=== PATIENT | female | born 1955 | race Caucasian/White ===

== ENCOUNTER 2024-02-02 10:56 | Inpatient (IN) | payer OTHER ==
[2024-02-02] MEDS ORDERED: Bisacodyl 5 MG TAB PO PRN (14:21)
[2024-02-02] MEDS ORDERED: Ondansetron ODT 4 MG TAB SL PRN (14:21)
[2024-02-02] MEDS ORDERED: oxyCODONE 5 MG TAB PO PRN (14:26)
[2024-02-02] MEDS: FLU (Fluad Triv) TS24-25 (65UP)/MF59C/PF 45 MCG/0.5 ML Syringe IM ONE (15:57)
[2024-02-02] MEDS: Methocarbamol 500 MG TAB PO SCH (15:58)
[2024-02-02] MEDS: oxyCODONE 5 MG TAB PO PRN (17:53)
[2024-02-02] MEDS: CeleCOXIB 100 MG CAP PO SCH (20:01)
[2024-02-02] MEDS: Melatonin 3 MG TAB PO SCH (20:02)
[2024-02-02] MEDS: Acetaminophen 500 MG TAB PO SCH (20:02)
[2024-02-02] MEDS: Rosuvastatin 10 MG TAB PO SCH (20:03)
[2024-02-02] MEDS: Aspirin 325 mg Enteric Coated Tablet PO SCH (20:03)
[2024-02-02] MEDS ORDERED: Famotidine 20 MG TAB PO SCH ×2 (21:00)
[2024-02-03] MEDS: oxyCODONE 5 MG TAB PO PRN (01:21)
[2024-02-03 05:56] LABS: #Eosinophils 0.2 thou/uL (0.0-0.7); #Monocytes 0.7 thou/uL (0.11-0.59); #Neutrophils 4.2 thou/uL (1.40-6.50); %Basophils 0.8 % (0.0-1.0); %Eosinophils 3.9 % (0.0-10.0); %Lymphocytes 16.8 % (21.0-51.0); %Monocytes 10.6 % (0.0-10.0); %Neutrophils 67.9 % (42.0-75.0); Hematocrit 32.6 % (36.0-47.0); Hemoglobin 10.5 g/dL (12.0-16.0); Mean Corpuscular HGB CONC 32.1 g/dL (32.0-36.0); Mean Corpuscular Hemoglobin 27.7 pg (27.0-31.0); Mean Corpuscular Volume 86.2 fl (78.0-98.0); Mean Platelet Volume 10.4 fL (7.4-10.4); Platelet Count 179 10x3/uL (130-400); Red Blood Cell (RBC) Count 3.78 mill/uL (4.20-5.40); White Blood Cell (WBC) Count 6.1 10x3/uL (4.8-10.8)
[2024-02-03] MEDS: Levothyroxine Sodium 100 MCG TAB PO SCH (06:07)
[2024-02-03 06:12] LABS: ALT (SGPT) 14 U/L (8-55); AST (SGOT) 25 U/L (5-34); Albumin 2.9 g/dL (3.4-4.8); Alkaline Phosphatase 71 U/L (40-110); Anion Gap 13 mmol/L (10-20); BUN (Urea Nitrogen) 10 mg/dL (9.8-20.1); Bilirubin, Total 0.6 mg/dL (0.2-1.2); Calc. Creatinine Clearance 96 mL/min (70-130); Calcium 9.2 mg/dL (7.8-10.44); Carbon Dioxide 29 mmol/L (23-31); Chloride 104 mmol/L (98-107); Estimated GFR 69; Globulin 2.8 g/dL (2.4-3.5); Glucose 78 mg/dL (80-115); Potassium 4.4 mmol/L (3.5-5.1); Protein, Total 5.7 g/dL (5.8-8.1); Sodium 142 mmol/L (136-145)
[2024-02-03] MEDS: Cholecalciferol 1,000 UNITS (25 MCG) TAB PO SCH (09:06)
[2024-02-03] MEDS: Losartan 25 MG TAB PO SCH (09:07)
[2024-02-03] MEDS: Multivitamin W/ Minerals 1 TAB PO SCH (09:08)
[2024-02-03] MEDS: DULoxetine 30 MG CAP PO SCH (09:09)
[2024-02-03] MEDS: Ferrous Sulfate 325 MG TAB PO SCH (09:09)
[2024-02-03] MEDS: Pantoprazole DR 40 MG TAB PO SCH (09:09)
[2024-02-04 06:47] VITALS: BMI 34.2
[2024-02-06] MEDS: Rosuvastatin 5 MG TAB PO SCH (21:49)
[2024-02-08] MEDS: traZODone HCl 50 MG TAB PO SCH (20:36)
[2024-02-10 05:18] LABS: #Basophils 0.1 thou/uL (0.0-0.2); #Eosinophils 0.4 thou/uL (0.0-0.7); #Lymphocytes 1.2 thou/uL (1.20-3.40); #Monocytes 0.8 thou/uL (0.11-0.59); #Neutrophils 4.1 thou/uL (1.40-6.50); %Basophils 1.2 % (0.0-1.0); %Eosinophils 5.6 % (0.0-10.0); %Lymphocytes 18.5 % (21.0-51.0); %Monocytes 11.6 % (0.0-10.0); %Neutrophils 63.1 % (42.0-75.0); Hematocrit 35.7 % (36.0-47.0); Hemoglobin 11.4 g/dL (12.0-16.0); Mean Corpuscular HGB CONC 31.9 g/dL (32.0-36.0); Mean Corpuscular Hemoglobin 27.7 pg (27.0-31.0); Mean Corpuscular Volume 86.8 fl (78.0-98.0); Mean Platelet Volume 8.3 fL (7.4-10.4); Platelet Count 332 10x3/uL (130-400); RBC Distribution Width 11.9 % (11.5-14.5); Red Blood Cell (RBC) Count 4.11 mill/uL (4.20-5.40); White Blood Cell (WBC) Count 6.5 10x3/uL (4.8-10.8)
[2024-02-10 05:33] LABS: Anion Gap 15 mmol/L (10-20); BUN (Urea Nitrogen) 20 mg/dL (9.8-20.1); Calc. Creatinine Clearance 79 mL/min (70-130); Calcium 9.5 mg/dL (7.8-10.44); Carbon Dioxide 27 mmol/L (23-31); Chloride 100 mmol/L (98-107); Estimated GFR 55; Glucose 100 mg/dL (80-115); Potassium 4.3 mmol/L (3.5-5.1); Sodium 138 mmol/L (136-145)
[2024-02-10] MEDS ORDERED: Famotidine 20 MG TAB PO PRN (10:27)
[2024-02-10] MEDS ORDERED: Diclofenac 1% 100 GM Topical GEL TP PRN (10:34)
[2024-02-10] MEDS: Ferrous Sulfate 325 MG TAB PO SCH (11:39)
[2024-02-11] MEDS: Senokot S 8.6-50 MG TAB PO PRN (06:16)
[2024-02-11] MEDS: Polyethylene Glycol 3350 17 GM Packet PO SCH (08:51)
[2024-02-11] MEDS: Docusate 100 MG CAP PO SCH (08:52)
[2024-02-11] MEDS: DULoxetine 30 MG CAP PO SCH (20:00)
[2024-02-11] MEDS: Calcium Carbonate 500 MG ChewTAB PO PRN (20:00)
[2024-02-12] MEDS ORDERED: Ferrous Sulfate 325 MG TAB PO SCH (10:30)
[2024-02-12] MEDS: Ferrous Sulfate 325 MG TAB PO SCH (11:55)
[2024-02-12 12:05] VITALS: BMI 34.4
[2024-02-12 14:06] VITALS: BP 132/82; TEMP 97.5
== END 2024-02-12 15:15 | disposition home health service (06) | DRG 561 ==
LOC: NAV ACUTE 13:15
PROVIDERS: ADMIT Family Medicine; ATTEND Family Medicine
PROC: 5A09457 Assistance with Respiratory Ventilation, 24-96 Consecutive Hours, Continuous Positive Airway Pressure (ICD-10-PCS; principal; 2024-02-08)
DX: Z47.1 Aftercare following joint replacement surgery (principal); Z96.652 Presence of left artificial knee joint; G47.33 Obstructive sleep apnea (adult) (pediatric); I10 Essential (primary) hypertension; E03.9 Hypothyroidism, unspecified; Z96.661 Presence of right artificial ankle joint; Z96.643 Presence of artificial hip joint, bilateral; R53.81 Other malaise; G47.00 Insomnia, unspecified; K21.9 Gastro-esophageal reflux disease without esophagitis; Z90.710 Acquired absence of both cervix and uterus
CPT/HCPCS: 36415; 80048; 80053; 85025

== ENCOUNTER 2024-06-25 15:49 | Inpatient (IN) | payer OTHER ==
[2024-06-25] MEDS ORDERED: Ondansetron ODT 4 MG TAB SL PRN (18:06)
[2024-06-25] MEDS ORDERED: Bisacodyl 5 MG TAB PO PRN (18:06)
[2024-06-25] MEDS ORDERED: Senokot S 8.6-50 MG TAB PO PRN (18:06)
[2024-06-25] MEDS: Acetaminophen 500 MG TAB PO SCH (21:13)
[2024-06-25] MEDS: CeleCOXIB 100 MG CAP PO SCH (21:15)
[2024-06-25] MEDS: Methocarbamol 500 MG TAB PO SCH (21:18)
[2024-06-25] MEDS: Aspirin 325 mg Enteric Coated Tablet PO SCH (21:18)
[2024-06-25] MEDS: Melatonin 3 MG TAB PO SCH (21:18)
[2024-06-25] MEDS: Rosuvastatin 5 MG TAB PO SCH (21:19)
[2024-06-25] MEDS: HYDROcodone/Acetaminophen 10/325 mg Tablet PO PRN (21:19)
[2024-06-26] MEDS: Levothyroxine Sodium 100 MCG TAB PO SCH (05:40)
[2024-06-26 05:47] LABS: #Basophils 0.1 thou/uL (0.0-0.2); #Eosinophils 0.8 thou/uL (0.0-0.7); #Lymphocytes 1.5 thou/uL (1.20-3.40); #Monocytes 0.7 thou/uL (0.11-0.59); #Neutrophils 6.1 thou/uL (1.40-6.50); %Basophils 0.9 % (0.0-1.0); %Eosinophils 8.2 % (0.0-10.0); %Lymphocytes 16.2 % (21.0-51.0); %Monocytes 8.1 % (0.0-10.0); %Neutrophils 66.7 % (42.0-75.0); Hematocrit 33.9 % (36.0-47.0); Hemoglobin 11.2 g/dL (12.0-16.0); Mean Corpuscular HGB CONC 33.1 g/dL (32.0-36.0); Mean Corpuscular Hemoglobin 27.1 pg (27.0-31.0); Mean Corpuscular Volume 81.8 fl (78.0-98.0); Mean Platelet Volume 8.6 fL (7.4-10.4); Platelet Count 343 10x3/uL (130-400); RBC Distribution Width 11.8 % (11.5-14.5); Red Blood Cell (RBC) Count 4.15 mill/uL (4.20-5.40); White Blood Cell (WBC) Count 9.1 10x3/uL (4.8-10.8)
[2024-06-26 06:02] LABS: ALT (SGPT) 14 U/L (Less than 34); AST (SGOT) 22 U/L (11-34); Albumin 3.3 g/dL (3.1-4.5); Alkaline Phosphatase 76 U/L (40-110); Anion Gap 13 mmol/L (10-20); BUN (Urea Nitrogen) 17 mg/dL (9.8-20.1); Bilirubin, Total 0.4 mg/dL (0.3-1.2); Calc. Creatinine Clearance 79 mL/min (70-130); Calcium 9.2 mg/dL (7.8-10.44); Carbon Dioxide 26 mmol/L (23-31); Chloride 105 mmol/L (98-107); Estimated GFR 62; Glucose 91 mg/dL (83-110); Potassium 5.2 mmol/L (3.5-5.1); Protein, Total 6.3 g/dL (5.8-8.1); Sodium 139 mmol/L (136-145)
[2024-06-26] MEDS: Cholecalciferol 1,000 UNITS (25 MCG) TAB PO SCH (08:58)
[2024-06-26] MEDS: Enoxaparin 40 MG (0.4 mL) SYRINGE SC SCH (08:58)
[2024-06-26] MEDS ORDERED: Levothyroxine Sodium 100 MCG TAB PO SCH (09:00)
[2024-06-26] MEDS: DULoxetine 30 MG CAP PO SCH (09:00)
[2024-06-26] MEDS: Pantoprazole 40 MG DR.TAB PO SCH (09:01)
[2024-06-26] MEDS: Polyethylene Glycol 3350 17 GM Packet PO SCH (09:02)
[2024-06-26] MEDS: Losartan 25 MG TAB PO SCH (09:02)
[2024-06-26] MEDS: Multivitamin W/ Minerals 1 TAB PO SCH (09:02)
[2024-06-27 06:13] LABS: Anion Gap 13 mmol/L (10-20); BUN (Urea Nitrogen) 23 mg/dL (9.8-20.1); Calc. Creatinine Clearance 78 mL/min (70-130); Calcium 9.2 mg/dL (7.8-10.44); Carbon Dioxide 26 mmol/L (23-31); Chloride 103 mmol/L (98-107); Estimated GFR 61; Glucose 86 mg/dL (83-110); Potassium 4.6 mmol/L (3.5-5.1); Sodium 137 mmol/L (136-145)
[2024-06-27] MEDS: HYDROcodone/Acetaminophen 10/325 mg Tablet PO PRN (11:32)
[2024-06-28] MEDS ORDERED: Polyethylene Glycol 3350 17 GM Packet PO PRN (11:38)
[2024-06-30 06:21] VITALS: BMI 32.4
[2024-07-02 12:52] VITALS: BMI 32.4
[2024-07-05 08:58] VITALS: BP 135/74; TEMP 98.1
== END 2024-07-05 11:24 | disposition home or self-care (01) | DRG 946 ==
LOC: NAV ACUTE 19:37
PROVIDERS: ADMIT Family Medicine; ATTEND Family Medicine
PROC: F07Z9ZZ Gait Training/Functional Ambulation Treatment (ICD-10-PCS; principal; 2024-06-25)
DX: R53.81 Other malaise (principal); G47.33 Obstructive sleep apnea (adult) (pediatric); I10 Essential (primary) hypertension; E03.9 Hypothyroidism, unspecified; E87.5 Hyperkalemia; M19.90 Unspecified osteoarthritis, unspecified site; Z90.710 Acquired absence of both cervix and uterus; Z96.653 Presence of artificial knee joint, bilateral; Z96.643 Presence of artificial hip joint, bilateral; Z79.899 Other long term (current) drug therapy
CPT/HCPCS: 36415; 80048; 80053; 85025; J1650